=== PATIENT | female | born 1995 | race Two or more races ===

== ENCOUNTER 2020-02-19 10:28 | Inpatient (IN) | payer OTHER ==
[~2020-02-19] VITALS: Ht 167.6 cm; Wt 3.2 kg
[2020-02-28] MEDS ORDERED: PRENATAL PO (08:32)
[2020-03-15] MEDS ORDERED: PRENATAL + DHA1 EAC1 PO (08:25)
== END 2020-03-18 14:04 | disposition home or self-care (01) | DRG 788 ==
LOC: OB/GYN 02-26 12:15 → O/R 03-15 06:00 → OB/GYN 03-15 07:00
PROVIDERS: ADMIT Specialist
PROC: 4A1HXFZ Monitoring of Products of Conception, Cardiac Rhythm, External Approach (ICD-10-PCS; 2020-03-15)
PROC: 3E033VJ Introduction of Other Hormone into Peripheral Vein, Percutaneous Approach (ICD-10-PCS; 2020-03-15)
PROC: 10D00Z1 Extraction of Products of Conception, Low, Open Approach (ICD-10-PCS; principal; 2020-03-15 07:00)
DX: O82 Encounter for cesarean delivery without indication (principal); Z3A.38 38 weeks gestation of pregnancy; Z53.29 Procedure and treatment not carried out because of patient's decision for other reasons; Z37.0 Single live birth